=== PATIENT | male | born 1990 | race Two or more races ===

== ENCOUNTER 2020-01-08 17:54 | Emergency (ER) | payer SELFPAY ==
[~2020-01-08] VITALS: Ht 177.8 cm; Wt 95.3 kg
[~2020-01-08 17:54] MED LIST: NOR10T PO
[2020-01-08] MEDS ORDERED: TETANUS-DIPTH-ACEL PERTUSSIS 0.5ML SYR Tdap IM ONE (19:00)
[2020-01-08 19:12] VITALS: BP 182/80
== END 2020-01-08 21:05 | disposition home or self-care (01) ==
LOC: ER 17:54
DX: S61.432A Puncture wound without foreign body of left hand, initial encounter (principal); F17.210 Nicotine dependence, cigarettes, uncomplicated; Z79.899 Other long term (current) drug therapy; W54.0XXA Bitten by dog, initial encounter; Y93.89 Activity, other specified; Y92.89 Other specified places as the place of occurrence of the external cause; Y99.8 Other external cause status
CPT/HCPCS: 90471; 90715

== ENCOUNTER 2020-06-10 17:32 | Emergency (ER) | payer OTHER ==
[~2020-06-10] VITALS: Ht 177.8 cm; Wt 94.8 kg
[2020-06-10 21:39] VITALS: BP 160/110
== END 2020-06-10 22:00 | disposition home or self-care (01) ==
LOC: ER 17:32
DX: S42.022A Displaced fracture of shaft of left clavicle, initial encounter for closed fracture (principal); V19.9XXA Pedal cyclist (driver) (passenger) injured in unspecified traffic accident, initial encounter; Y93.89 Activity, other specified; Y92.89 Other specified places as the place of occurrence of the external cause; Y99.8 Other external cause status
CPT/HCPCS: 29105; 73000

== ENCOUNTER 2020-09-10 10:37 | Emergency (ER) | payer OTHER ==
[~2020-09-10] VITALS: Ht 177.8 cm; Wt 95.3 kg
[2020-09-10 11:07] LABS: Basophils # (auto) 0 10 ^3/uL (0-0.2); Basophils % (auto) 0.7 % (0.0-2.0); Eosinophils # (auto) 0.1 10 ^3/uL (0-0.8); Hematocrit 41.3 % (41.0-53.0); Hemoglobin 14.8 g/dL (13.5-17.5); Lymphocytes # (auto) 2.5 10 ^3/uL (0.4-5.4); Lymphocytes % (auto) 36.5 % (10.0-50.0); Mean Corpuscular Hemoglobin 31.3 pg (28.0-32.0); Mean Corpuscular Hgb Conc. 35.7 g/dL (32.0-36.0); Mean Corpuscular Volume 87.7 fL (80.0-100.0); Monocytes # (auto) 0.5 10 ^3/uL (0-1.3); Monocytes % (auto) 7.3 % (0.0-12.0); Neutrophils # (auto) 3.7 10 ^3/uL (1.6-8.6); Neutrophils % (auto) 53.5 % (37.0-80.0); Nucleated Red Blood Cells % 0.2 %; Platelet Count (auto) 295 10^3/uL (140-450); Red Blood Cells 4.71 10^6/uL (4.5-5.90); White Blood Cell 6.8 10^3/uL (4.4-10.8)
[2020-09-10 11:24] LABS: Alanine Aminotransferase 39 U/L (16-61); Albumin 3.8 g/dL (3.4-5.0); Anion Gap 3 (5-15); Blood Urea Nitrogen 21 mg/dL (7-18); Calcium 8.2 mg/dL (8.5-10.1); Carbon Dioxide 29 mmol/L (21-32); Chloride 109 mmol/L (98-107); Glucose 103 mg/dL (74-106); Potassium 4.2 mmol/L (3.5-5.1); Sodium 141 mmol/L (136-145)
[2020-09-10 11:29] LABS: Alkaline Phosphatase 105 U/L (45-117); Aspartate Aminotransferase 33 U/L (15-37); BUN/Creatinine Ratio 18.3; Bilirubin, Total 0.6 mg/dL (0.2-1.0); GFR African American 96 mL/min; GFR Non-African American 79 mL/min; Total Protein 7.7 g/dL (6.4-8.2)
[2020-09-10 12:18] LABS: Urine Bacteria NONE SEEN /hpf (None Seen); Urine Blood Negative /uL (Negative); Urine Specific Gravity 1.023 (1.001-1.035); Urine WBC <1 /hpf (0 - 3)
[2020-09-10 14:00] VITALS: BP 138/73
== END 2020-09-10 15:33 | disposition home or self-care (01) ==
LOC: ER 10:37
DX: M47.22 Other spondylosis with radiculopathy, cervical region (principal); R20.0 Anesthesia of skin; F12.10 Cannabis abuse, uncomplicated; Z87.81 Personal history of (healed) traumatic fracture; Z79.899 Other long term (current) drug therapy
CPT/HCPCS: 36415; 71046; 72125; 80053; 81001; 84484; 85025; 93005